=== PATIENT | female | born 1965 | race Caucasian/White ===

== ENCOUNTER 2023-04-22 13:36 | Outpatient (OUT) | payer BC, SELFPAY ==
--- NOTE | 2023-04-22 13:39 | MM_ITS ---
Patient Name: BRAD WILLIAM MR#: [id number] : 1965 Exam Date: 04/22/2023 Ordering Doctor: DR MELISSA ALLISON D.O. RADIOLOGY REPORT PROCEDURE: MM TOMOSYNTHESIS SCREENING BI COMPARISON: MG MAMM SCREEN 3D IVIS CAD, 09/20/2020. MG MAMM SCREEN 3D IVIS CAD, 04/10/2022. INDICATIONS: Screening Calculator Name NCI Breast Cancer Risk Assessment Tool 5 Year Breast Cancer Risk 0.90% Lifetime Breast Cancer Risk 5.70% Personal Breast Cancer No Personal Ovarian Cancer No Treatments None Family Cancers Mother with lung cancer at age 36; Sister with lung cancer at age ~40. LOCATION: [facility] BREAST COMPOSITION: Heterogeneously dense,which may obscure small masses. FINDINGS: DIAGNOSTIC CATEGORY 2--BENIGN FINDING. NO CHANGE FROM COMPARISON. Scattered benign-appearing calcifications are present. Scattered benign-appearing lymph nodes are present. RIGHT BREAST: No significant suspicious finding. LEFT BREAST: No significant suspicious finding. RECOMMENDATIONS: ROUTINE MAMMOGRAM AND CLINICAL EVALUATION IN 12 MONTHS. PLEASE NOTE: A NORMAL MAMMOGRAM DOES NOT EXCLUDE THE POSSIBILITY OF BREAST CANCER. A CLINICALLY SUSPICIOUS PALPABLE LUMP SHOULD BE BIOPSIED. Dictated by: Yang Rivera MD on 04/24/2023 at 08:08 Approved by: Yang Rivera MD on 04/24/2023 at 08:10
== END 2023-04-22 13:37 | disposition home or self-care (01) ==
LOC: MAMMO 13:36
PROVIDERS: PCP Internal Medicine; Visit Provider Internal Medicine
DX: Z12.31 Encounter for screening mammogram for malignant neoplasm of breast (principal); Z80.1 Family history of malignant neoplasm of trachea, bronchus and lung
CPT/HCPCS: 77063; 77067